=== PATIENT | male | born 1950 | race Hispanic/Latino ===

== ENCOUNTER 2021-09-26 11:20 | Observation (INO) | payer MEDICARE ==
[2021-09-25 13:32] LABS: BASOPHILS % (AUTO) 0.6 % (0.0-5.0); EOSINOPHILS % (AUTO) 3.1 % (0.0-8.0); HEMATOCRIT 46.9 % (42-54); LYMPHOCYTES % (AUTO) 26.3 % (21.0-51.0); MEAN CORPUSCULAR HEMOGLOBIN 28.7 pg (27.0-33.0); MEAN CORPUSCULAR VOLUME 86.9 fL (79-99); MONOCYTES % (AUTO) 6.1 % (3.0-13.0); NEUTROPHILS % (AUTO) 63.5 % (40.0-77.0); PLATELET COUNT (AUTO) 256 K/uL (130-400); RED CELL DISTRIBUTION WIDTH 14.9 % (11.0-15.5); WHITE BLOOD COUNT (AUTO) 10.4 K/uL (4.8-10.8)
[2021-09-25 13:36] LABS: APPEARANCE,URINE Clear (CLEAR); BILIRUBIN,URINE Negative (NEGATIVE); COLOR,URINE Yellow (YELLOW); GLUCOSE, URINE (UA) Negative (NEGATIVE); KETONES,URINE Negative (NEGATIVE); LEUKOCYTE ESTERASE ,URINE Large (NEGATIVE); NITRATE,URINE Negative (NEGATIVE); OCCULT BLOOD,URINE Negative (NEGATIVE); PH,URINE 6.5 (5.0-8.0); PROTEIN,URINE Negative (NEGATIVE)
[2021-09-25 13:39] LABS: CREATININE 1.1 mg/dL (0.5-1.5); POTASSIUM 4.9 mmol/L (3.5-5.1)
[2021-09-25 13:40] LABS: INR 1.03 (0.85-1.15); PROTHROMBIN TIME 11.2 SEC (9.6-11.6)
[2021-09-25 13:41] LABS: PARTIAL THROMBOPLASTIN TIME 26.1 SEC (26.3-35.5)
[2021-09-25 14:39] LABS: BACTERIA,URINE Few /HPF (None Seen); MUCUS,URINE Rare LPF (None Seen); RBC,URINE 0-1 /HPF (0-1); SQUAMOUS EPITHELIAL CELL,UR 0-2 /HPF (0-2)
[2021-09-25 15:35] VITALS: BP 139/71
[2021-09-26] VITALS (16 sets, daily range): BP systolic 113–159; BP diastolic 61–82
[~2021-09-26] VITALS: Ht 167.6 cm; Wt 81.6 kg
[~2021-09-26 11:20] MED LIST: AEC81 PO; AMLO-258 PO; BENAZEPRIL-HCTZ PO; GLIP1TAB6 PO; SIMV40TA59 PO; TAMS-1 PO
[2021-09-26] MEDS ORDERED: 0.9%NACL 1000ML 1,000 ML IV ONE (11:33)
[2021-09-26] MEDS ORDERED: [UNRECOGNIZED DRUG - CODE] PO (12:09)
[2021-09-26] MEDS ORDERED: HEPARIN 10,000 UNIT/10ML (1,000 UNIT/ML) VIAL ONE (13:27)
[2021-09-26] MEDS ORDERED: LIDOCAINE HCL 400MG/20ML VIAL ONE (13:28)
[2021-09-26] MEDS ORDERED: NITROGLYCERIN 50MG VIAL ONE (13:29)
[2021-09-26] MEDS ORDERED: IODIXANOL 320 MG/ML 100 ML VIAL ONE (13:29)
[2021-09-26] MEDS ORDERED: IOHEXOL-350 50ML VIAL IV ONE (13:51)
[2021-09-26] MEDS ORDERED: FENTANYL CITRATE PF 50 MCG/1 ML 2ML VIAL ONE (13:52)
[2021-09-26] MEDS ORDERED: MIDAZOLAM HCL 1 MG/ML 2ML VIAL ONE (13:52)
[2021-09-26] MEDS ORDERED: ASPIRIN 325MG EC TAB PO ONE (15:19)
[2021-09-26] MEDS ORDERED: CLOPIDOGREL 300MG TAB ONE (15:19)
[2021-09-26] MEDS ORDERED: DEXTROSE 50%-WATER 50 ML DISP.SYRIN IV PRN (16:30)
[2021-09-26] MEDS ORDERED: GLUCAGON 1MG KIT 1 MG ML IM PRN (16:30)
[2021-09-26] MEDS ORDERED: 1/2 NS 1000ML 1,000 ML IV SCH (16:30)
[2021-09-26] MEDS: INSULIN HUMULIN R 100 UNIT/ML 3ML SQ SCH ×2 (18:00→20:44)
[2021-09-26] MEDS: GLIPIZIDE 5 MG TABLET PO SCH (20:40)
[2021-09-26] MEDS: METFORMIN HCL 500 MG TABLET PO SCH (20:40)
[2021-09-26] MEDS ORDERED: TAMSULOSIN HCL 0.4 MG CAP.ER.24H PO SCH (21:00)
[2021-09-26] MEDS ORDERED: SIMVASTATIN 20 MG TABLET PO SCH (21:00)
[2021-09-27 00:45] VITALS: BP 144/75
[2021-09-27 04:14] LABS: HEMATOCRIT 45.2 % (42-54); MEAN CORPUSCULAR HEMOGLOBIN 28.4 pg (27.0-33.0); MEAN CORPUSCULAR VOLUME 86.3 fL (79-99); RED BLOOD CELL COUNT(AUTO) 5.24 MIL/uL (4.50-6.20); RED CELL DISTRIBUTION WIDTH 14.6 % (11.0-15.5); WHITE BLOOD COUNT (AUTO) 13.5 K/uL (4.8-10.8)
[2021-09-27 04:36] LABS: POTASSIUM 4.1 mmol/L (3.5-5.1)
[2021-09-27 04:58] VITALS: BP 136/71
[2021-09-27] MEDS: INSULIN HUMULIN R 100 UNIT/ML 3ML SQ SCH (05:34)
[2021-09-27] MEDS ORDERED: BENA PO SCH (09:00)
[2021-09-27] MEDS ORDERED: CLOPIDOGREL 75MG TAB PO SCH (09:00)
[2021-09-27] MEDS ORDERED: AMLODIPINE PO SCH (09:00)
[2021-09-27] MEDS ORDERED: ASPIRIN 81 MG EC TAB PO SCH (09:00)
[2021-09-27] MEDS: METFORMIN HCL 500 MG TABLET PO SCH (09:13)
[2021-09-27] MEDS: GLIPIZIDE 5 MG TABLET PO SCH (09:13)
== END 2021-09-27 11:11 | disposition home or self-care (01) ==
LOC: DAH 11:20 → DAHIP 11:21 → 4DH 18:50
PROVIDERS: ADMIT Internal Medicine; ATTEND Internal Medicine
DX: I74.5 Embolism and thrombosis of iliac artery (principal); M79.662 Pain in left lower leg; E78.5 Hyperlipidemia, unspecified; Z79.899 Other long term (current) drug therapy; Z98.890 Other specified postprocedural states
CPT/HCPCS: 36415 ×2; 37226; 71045; 75710; 80048 ×2; 81001; 82948 ×4; 85025; 85027; 85610; 85730; 87088; 93005; A4215; A4216; A4221; A4222; A4223 ×3; A4606; A4663; C1725 ×2; C1760; C1769 ×2; C1874 ×2; C1887 ×3; C1893; C1894 ×4; G0378 ×18; J1644 ×2; J2250; J3010; J3490 ×2; J7030; Q9967 ×2; 99156; 99157